=== PATIENT | male | born 1940 | race Caucasian/White ===

== ENCOUNTER 2018-04-18 04:04 | Emergency (ER) | payer OTHER, BC ==
[2018-04-18] MEDS ORDERED: OXYMETAZOLINE 30 ML NASAL SPRAY ONE (04:08)
[2018-04-18] MEDS ORDERED: SILVER NITRATE APPLICATOR 1 APPL TP ONE ×2 (04:08→04:24)
[2018-04-18] MEDS ORDERED: LIDOCAINE HCL 4% TOPICAL SOLN 50ML ONE (04:20)
[2018-04-18] MEDS ORDERED: TRANEXAMIC ACID 1,000 MG/10 ML VIAL ONE (04:20)
[2018-04-18] MEDS ORDERED: OXYMETAZOLINE 30 ML NASAL SPRAY EACHNARE ONE (04:24)
[2018-04-18] MEDS ORDERED: TRANEXAMIC ACID 1,000 MG/10 ML VIAL TP ONE (04:25)
[2018-04-18] MEDS ORDERED: LIDOCAINE HCL 4% TOPICAL SOLN 50ML TP ONE (04:25)
--- NOTE | 2018-04-18 04:36 | EDPHY ---
H & P Stated Complaint: RIGHT NOSE BLEED SINCE 329, OFF/ON SINCE SUN AM Time Seen by Provider: 04/18/18 04:14 HPI/ROS: Chief Complaint: Nose bleed HPI: A 77-year-old male has been having nose bleeding off and on for the last 2 days. 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 Patient states that he woke this morning at 3:00 a.m. With blood gushing out of his right nostril. No lightheadedness or fainting. No falls or injuries. No foreign bodies. He attempted to pinch his nose for over an hour without any success. ROS: 10 systems were reviewed and were negative except those elements noted in the HPI. PMH: Atrial fibrillation on Eliquis Social History: No smoking, no alcohol, no recreational drug use Family History: non-contributory Physical Exam: Gen: Awake, Alert, No Distress HEENT: Nose: Moderate active bleeding from his right nostril Eyes: PERRLA, EOMI Mouth: Moist mucosa Neck: Supple, no JVD Ext: no edema, non-tender Skin: no rash Neuro: CN II-XII intact, Sensation grossly intact, Strength 5/5 in bilateral upper and lower extremities - Personal History Current Tetanus/Diphtheria Vaccine: Yes - Medical/Surgical History Hx Asthma: No Hx Chronic Respiratory Disease: No Hx Diabetes: No Hx Cardiac Disease: No Hx Renal Disease: No Hx Cirrhosis: No Hx Alcoholism: No Hx HIV/AIDS: No Hx Splenectomy or Spleen Trauma: No Other PMH: AFIB, APPY, FX ARM, HIGH CHOL, NEWHALEN, CAD, MITRAL VALVE LEAK - Social History Smoking Status: Never smoked Constitutional: Initial Vital Signs Heart Rate 58 L 04/18/18 04:06 Respiratory Rate 22 H 04/18/18 04:06 Blood Pressure 163/98 H 04/18/18 04:06 O2 Sat (%) 98 04/18/18 04:06 O2 Delivery Mode Room Air Allergies/Adverse Reactions: No Known Allergies Allergy (Unverified 04/18/18 04:05) Home Medications: Medication Instructions Recorded Rosuvastatin Calcium [Crestor] 40 mg PO DAILY 11/15/10 Eliquis 04/18/18 Medical Decision Making Procedures: Procedure: Epistaxis control. After verbal consent was obtained, the patient was 1st she did with Trace- Synephrine nasal spray after he blow all nasal clots and clamped. He was then anesthetized with 4% lidocaine topically. I then administer topical tranexamic acid. The anterior epistaxis was identified. The patient was treated with silver nitrate cautery. Following the procedure the patient was re -examined and the bleeding was well controlled. The patient tolerated the procedure well. The procedure was performed by myself. Departure - Departure Disposition: Home, Routine, Self-Care Clinical Impression: Acute anterior epistaxis Condition: Good Instructions: Nosebleed (ED) Additional Instructions: Follow up with Ear Nose and Throat doctor in the next 1-2 days for further evaluation. Return to the emergency department if the bleeding returns. Referrals: Basim Crockett MD [Primary Care Provider] - As per Instructions Adrien Narayanan MD [Medical Doctor] - As per Instructions
[2018-04-18 05:18] VITALS: BP 129/82
== END 2018-04-18 05:19 | disposition home or self-care (01) ==
PROC: 3E09XTZ Introduction of Destructive Agent into Nose, External Approach (ICD-10-PCS; principal; 2018-04-18)
DX: R04.0 Epistaxis (principal); I48.91 Unspecified atrial fibrillation; Z79.01 Long term (current) use of anticoagulants

== ENCOUNTER → 2018-05-03 | Outpatient (CLI) | payer OTHER, BC | LOC: BHFA 10:00 | PROVIDERS: ATTEND Internal Medicine Interventional Cardiology | DX: I25.10 Atherosclerotic heart disease of native coronary artery without angina pectoris (principal); R01.1 Cardiac murmur, unspecified ==

== ENCOUNTER → 2018-05-30 | Outpatient (CLI) | payer OTHER, BC | LOC: BHFA 08:30 | PROVIDERS: ATTEND Internal Medicine Cardiovascular Disease | DX: I25.10 Atherosclerotic heart disease of native coronary artery without angina pectoris (principal); I47.2 Ventricular tachycardia | CPT/HCPCS: 78452; 93017; A9500; J2785 ==

== ENCOUNTER 2018-05-31 07:42 | Day surgery (SDC) | payer OTHER, BC ==
[2018-05-31] MEDS ORDERED: MIDAZOLAM 2 MG/2 ML VIAL IVP ONE (07:45)
[2018-05-31] MEDS ORDERED: NS 500 ML IV ONE (07:45)
[2018-05-31] MEDS ORDERED: ATROPINE SULFATE 1 MG/10 ML SYR IVP ONE (07:45)
[2018-05-31] MEDS ORDERED: fentaNYL 100 MCG/2 ML INJ IVP ONE (07:45)
[2018-05-31 08:19] LABS: INR 1.33 (0.83-1.16); PROTIME(PATIENT) 16.7 SEC (12.0-15.0)
[2018-05-31] MEDS ORDERED: ETOMIDATE 40 MG/20 ML INJ IV ONE (08:30)
--- NOTE | 2018-05-31 09:19 | PDPROPOC ---
Sedation Plan of Care Sedation Plan of Care: vital signs stable, mental status noted, patient educated of risks, benefits, alternatives, patient can tolerate sedation ASA Classification: ASA 3 Planned drugs: midazolam, other (etomidate) Mallampati Score: Class 2 Mallampati Reference Image: Patient passed 3-3-2 rule?: Yes
--- NOTE | 2018-05-31 09:21 | PDHPUP ---
History & Physical Update H&P update statement: This history and physical update is based on an assessment of the patient which was completed after admission or registration (within 24 hours), but prior to the surgery/procedure. H&P update: H&P reviewed & patient examined (patient has been on full dose anticoagulation since April 11 and denies missing doses o fthe anticoagulation ), no change in patient's condition since H&P completed
--- NOTE | 2018-05-31 09:41 | PDTEE1 ---
[facility] Cardioversion Procedure Procedure: electrical cardioversion Indications: atrial fibrillation Consent: signed and in chart Anticoagulation: eliquis Procedural Details: PROCEDURE: Elective DC Cardioversion DATE OF PROCEDURE: 05/31/2018 COMPLICATIONS: None FIELD CONSULTANT: Jeremy Patel MD INDICATION AND APPROPRIATE USE CRITERIA: Atrial Fibrillation PROCEDURE IN DETAIL: After informed consent was obtained and n.p.o status was confirmed we proceeded with elective DC cardioversion. The pads were placed in the anterior and posterior position. The patient was given 2mg of Versed and 6mg of Etomidate for deep sedation prior to being cardioverted. There was 300J of biphasic synchronized counter shock delivered. The patient was successfully returned to normal sinus rhythm with first degree AV block and junctional escape rhythm with a heart rate of 39bpm. The patient was given 0.5mg of Atropine to help increase his heart rate. FINAL IMPRESSION: Successful elective DC cardioversion without immediate complication. The patient will remain on Eliquis 5mg PO BID post procedure. The patient is to avoid caffeine. alcohol, and strenuous exercise for the next three weeks. Synchronized cardioversion attempt #1: 300J Results: other (first degree AV block with junctional escape rhythm) Conclusions: successful cardioversion Conclusion Comment: The patient came out in sinus bradycardia with marked first degree AV block intermittent blocked PAC's with junctional escape beats in spite of 0.5 mg of Atropine. The patient will benefit from out patient Holter monitor. The patient may benefit from a dual chamber pacemeaker if symptomatic sinus arrest and pauses are present post cardioversion.
[2018-05-31] MEDS ORDERED: ATROPINE SULFATE 1 MG/10 ML SYR ONE (10:03)
--- NOTE | 2018-05-31 17:45 | CPEKG ---
Test Reason : OPEN Blood Pressure : / mmHG Vent. Rate : 054 BPM Atrial Rate : 101 BPM P-R Int : 071 ms QRS Dur : 086 ms QT Int : 437 ms P-R-T Axes : 000 -16 -10 degrees QTc Int : 415 ms Atrial fibrillation Borderline left axis deviation Low voltage, extremity leads Confirmed by Laurie Catalan ([id number]) on 05/31/2018 5:44:38 PM Referred By: Jeremy Patel Confirmed By:Laurie Catalan
--- NOTE | 2018-05-31 17:46 | CPEKG ---
Test Reason : OPEN Blood Pressure : / mmHG Vent. Rate : 057 BPM Atrial Rate : 069 BPM P-R Int : 363 ms QRS Dur : 084 ms QT Int : 488 ms P-R-T Axes : 081 -12 005 degrees QTc Int : 476 ms Sinus rhythm Atrial premature complex Prolonged SC interval Low voltage, extremity leads Borderline prolonged QT interval Compared with 05/31/2018 NSR has been restored. QT longer Confirmed by Laurie Catalan ([id number]) on 05/31/2018 5:46:29 PM Referred By: Jeremy Patel Confirmed By:Laurie Catalan
== END 2018-05-31 11:02 | disposition home or self-care (01) ==
LOC: FCATH 07:42
PROVIDERS: ATTEND Internal Medicine Cardiovascular Disease
PROC: 5A2204Z Restoration of Cardiac Rhythm, Single (ICD-10-PCS; principal; 2018-05-31)
DX: I48.91 Unspecified atrial fibrillation (principal); I47.2 Ventricular tachycardia; I34.0 Nonrheumatic mitral (valve) insufficiency; I25.10 Atherosclerotic heart disease of native coronary artery without angina pectoris; E78.5 Hyperlipidemia, unspecified; Z79.01 Long term (current) use of anticoagulants; Z86.010 Personal history of colon polyps; Z95.1 Presence of aortocoronary bypass graft
CPT/HCPCS: J0461; J2250

== ENCOUNTER → 2018-06-07 | Outpatient (CLI) | payer OTHER, BC | LOC: BHFA 16:00 | PROVIDERS: ATTEND Internal Medicine Cardiovascular Disease | DX: R00.1 Bradycardia, unspecified (principal) ==

== ENCOUNTER → 2018-06-12 | Outpatient (CLI) | payer OTHER, BC | LOC: BHFA 15:30 | PROVIDERS: ATTEND Internal Medicine Cardiovascular Disease | DX: E78.00 Pure hypercholesterolemia, unspecified (principal); Z79.899 Other long term (current) drug therapy ==